=== PATIENT | female | born 1945 ===

== ENCOUNTER → 2017-03-02 | Outpatient (CLI) | payer OTHER | LOC: SBRMNEURO 21:00 | PROVIDERS: ATTEND Psychiatry & Neurology Sleep Medicine | DX: G47.33 Obstructive sleep apnea (adult) (pediatric) (principal); G47.36 Sleep related hypoventilation in conditions classified elsewhere; G47.61 Periodic limb movement disorder ==

== ENCOUNTER → 2017-05-25 | Outpatient (CLI) | payer OTHER | LOC: SBRMNEURO 19:05 | PROVIDERS: ATTEND Psychiatry & Neurology Sleep Medicine | DX: G47.33 Obstructive sleep apnea (adult) (pediatric) (principal); G47.61 Periodic limb movement disorder ==